=== PATIENT | female | born 1985 | race Caucasian/White ===

== ENCOUNTER 2023-10-10 07:51 | Emergency (ER) | payer MEDICAID ==
[~2023-10-10] VITALS: Ht 162.6 cm; Wt 84.0 kg
[2023-10-10 08:01] VITALS: BP 138/102; PULSE 79; RESP 16; TEMP 98.3
[2023-10-10] MEDS ORDERED: [UNRECOGNIZED DRUG - CODE] PO (08:03)
[2023-10-10] MEDS ORDERED: ACET-2080 PO (08:29)
[2023-10-10] MEDS ORDERED: IBUP-1554 PO (08:29)
[2023-10-10] MEDS ORDERED: IBUPROFEN 600 MG TABLET PO ONE (08:30)
[2023-10-10] MEDS ORDERED: PENI500T2 PO (08:32)
== END 2023-10-10 09:27 | disposition home or self-care (01) ==
LOC: EMS 07:52
DX: K02.9 Dental caries, unspecified (principal); I10 Essential (primary) hypertension; Z90.49 Acquired absence of other specified parts of digestive tract; Z98.890 Other specified postprocedural states
CPT/HCPCS: 99283

== ENCOUNTER 2024-09-25 19:53 | Emergency (ER) | payer MEDICAID, OTHER ==
[~2024-09-25] VITALS: Ht 160 cm; Wt 83.0 kg
[~2024-09-25 19:53] MED LIST: ACET-2080 PO; IBUP-1554 PO; PENI500T2 PO; [UNRECOGNIZED DRUG - CODE] PO
[2024-09-25 19:56] VITALS: BP 137/81; PULSE 72; RESP 18; TEMP 99; O2SAT 97
== END 2024-09-25 21:57 | disposition left against medical advice (07) ==
LOC: EMS 19:53
DX: R51.9 Headache, unspecified (principal); R11.2 Nausea with vomiting, unspecified; Z53.21 Procedure and treatment not carried out due to patient leaving prior to being seen by health care provider
CPT/HCPCS: 93005